=== PATIENT | male | born 2000 | race Asian ===

== ENCOUNTER 2021-09-15 09:00 | Outpatient (CLI) | payer OTHER | END 2021-09-15 09:15 | disposition home or self-care (01) | LOC: PPH VACUNA 09:00 | PROVIDERS: ATTEND Emergency Medicine Pediatric Emergency Medicine | DX: Z23 Encounter for immunization (principal) ==

== ENCOUNTER 2023-02-18 11:11 | Emergency (ER) | payer OTHER ==
[~2023-02-18] VITALS: Ht 167.6 cm; Wt 71.7 kg
== END 2023-02-18 16:10 | disposition home or self-care (01) ==
LOC: ER 11:11
DX: A08.8 Other specified intestinal infections (principal); R10.9 Unspecified abdominal pain; Z91.018 Allergy to other foods